=== PATIENT | female | born 1970 | race Caucasian/White ===

== ENCOUNTER 2017-07-09 14:50 | Emergency (ER) | payer BC ==
--- OUTSIDE RECORDS SUMMARY | 2017-07-09 14:57 | XMS REPORT ---
:1970 External Reference #:[id number] Author Organization [facility] Address [address] [address] Phone [phone] Care Team Providers Name Role Phone Dilma Sheets DO Primary Care Physician Unavailable Payers Type Date Identification Numbers Payment Provider Subscriber Commercial Policy Number: [id number] BS Facets Erin Lilly PayID: [id number] [address] [address] Medigap Part B Expires: 2016 Policy Number: BS Facets Erin Bauer [id number] Maxx PayID: [id number] [address] [address] Problems Description No Information Family History Date Family Member(s) Problem(s) Comments General Cancer Father Lymphoma Father Congestive Heart Failure (CHF) d/t chemo and required heart transplant Mother Depression Siblings 4 Maternal Grandfather due to SD () - In his 60's Paternal Uncles Schizophrenia Paternal Aunts Schizophrenia First Paternal Cousin due to SD () - in his 30's Social History Type Date Description Comments Marital Status Lives With Occupation Currently Working Occupation Nurse ETOH Use Occasionally consumes alcohol Smoking Patient has never smoked Recreational Drug Use Denies Drug Use Daily Caffeine Consumes on average 1 cup of regular coffee per day Exercise Type/Frequency Exercises regularly Allergies, Adverse Reactions, Alerts Date Description Reaction Status Severity Comments 04/03/2016 NKDA active Medications Medication Date Status Form Strength Qnty SIG Indications Ordering Provider Wellbutrin SR Active Tablets ER 100mg 1 tab in Unknown 000 12HR in the morning, 1 po qpm Floradix Iron Active 1 po qd Unknown Supplement 000 Melatonin Active Capsules 1mg 1 p q hs Unknown 000 prn Risperidone Active 0.25mg 1-2 Unknown 000 x/year Naproxen Hx Tablets 500mg 90tabs 1 by M46.1 Thom F 016 - mouth Santhsoh, twice a MD 017 day as needed pain Risperidone Hx Tablets 0.25mg 1 tab by Unknown 000 - mouth daily as 017 needed Falmin Hx Tab 0.1mg-mcg 1 tab by Unknown 000 - mouth daily 017 Falmina Hx Tablets 0.1-20mg-m 1 by Unknown 000 - cg mouth every 018 day B Complex Hx Capsules 1-2x/wee Unknown 000 - 018 Vital Signs Date Vital Result Comment 07/01/2017 Height 62 inches 5'2" Weight 136.75 lb Heart Rate 72 /min BP Systolic Sitting 106 mmHg BP Diastolic Sitting 66 mmHg BMI (Body Mass Index) 25.0 kg/m2 Ejection Fraction 55-60% echo 03/25/17 04/18/2017 Height 62 inches 5'2" Weight 137.00 lb w/o shoes Heart Rate 72 /min BP Systolic Sitting 100 mmHg LA reg cuff BP Diastolic Sitting 68 mmHg LA reg cuff BMI (Body Mass Index) 25.1 kg/m2 Ejection Fraction 55% - 60% echo 03/25/17 Results Test Date Test Result H/L Range Note Basic Metabolic Panel 05/23/2017 Sodium 134 mmol/L 133-145 Potassium 4.5 mmol/L 3.5-5.0 Chloride 101 mmol/L 101-111 Co2 Carbon Dioxide 26 mmol/L 22-32 Anion Gap 7 mmol/L 2-11 Glucose 84 mg/dL 70-100 Blood Urea Nitrogen 13 mg/dL 6-24 Creatinine 0.77 mg/dL 0.51-0.95 BUN/Creatinine Ratio 16.9 8-20 Calcium 9.3 mg/dL 8.6-10.3 Egfr Non- 81.4 >60 Egfr 104.7 >60 1 Laboratory test finding 05/23/2017 Magnesium 2.3 mg/dL 1.9-2.7 Vitamin D 1,25 And Vitamin 05/23/2017 Vitamin D Total 25(Oh) 24.3 ng/mL 20-50 D,2 Vitamin D, 1,25 Dihydroxy 60 pg/mL 18-78 2 1 Because ethnic data is not always readily available, this report includes an eGFR for both -Americans and non- Americans. The National Kidney Disease Education Program (NKDEP) does not endorse the use of the MDRD equation for patients that are not between the ages of 18 and 70, are , have extremes of body size, muscle mass, or nutritional status, or are non- or non-. According to the National Kidney Foundation, irrespective of diagnosis, the stage of the disease is based on the level of kidney function: Stage Description GFR(mL/min/1.73 m(2)) 1 Kidney damage with normal or decreased GFR 90 2 Kidney damage with mild decrease in GFR 60-89 3 Moderate decrease in GFR 30-59 4 Severe decrease in GFR 15-29 5 Kidney failure <15 (or dialysis) 2 ADDITIONAL INFORMATION This test was developed and its performance characteristics determined by [facility] in a manner consistent with CLIA requirements. This test has not been cleared or approved by the U.S. Food and Drug Administration. Test Performed by: [facility] - [facility] [address] [place] [address] Procedures Date CPT Code Description Status 05/27/2017 86354 Holter Monitor Review (24 hr)dr scales & vega Completed only 05/23/2017 94459 ECG Monitor/Recording W/Visual Superimposition Scanning Completed 04/25/2017 72158 ECHO Stress Test Incl Perf Contiuous ekg Monitoring Completed W/Phys Superv 04/18/2017 04895 EKG Tracing & Interpretation Completed 03/25/2017 13498 ECHO Transthoracic, Real-Time 2D With Doppler And Color Completed Flow 01/16/2017 62629 Holter Monitor Review (24 hr)dr scales & vega Completed only Encounters Type Date Location Provider CPT E/M Dx Office Visit 04/18/2017 3:00p [facility] Darius Barfield, 28244 R00.2 Leonora I49.1 I34.0 I36.1 Office Visit 04/03/2016 3:00p [facility], 52772 M46.1 Korina RENO Plan of Care 07/01/2017 - Darius Barfield M.D.R00.2 UdilxoruuijhY37.1 Atrial premature kadngkjsbadmhaN34.0 Nonrheumatic mitral (valve) insufficiencyFollow up :one yr ov
--- OUTSIDE RECORDS SUMMARY | 2017-07-09 14:57 | XMS REPORT ---
:1970 External Reference #:[id number] Author Organization [facility] Address [address] [place] [address] Phone [phone] Care Team Providers Name Role Phone [facility] Primary Care Physician Unavailable Payers Type Date Identification Numbers Payment Provider Subscriber Commercial Policy Number: [id number] Tjus BC/BS Erin Bauer [facility] [employer] PayID: [id number] [address] [address] [place] [address] Problems Description No Active Problems Family History Date Family Member(s) Problem(s) Comments Father Lymphoma Father Heart enlargement- r/t Chemo. therapy Mother A&W Number of Children 1 First Son A&W Number of Siblings Siblings: 4 First Brother A&W Second Brother A&W First Sister Colitis ulcerative Second Sister A&W Paternal Grandfather Unknown Paternal Grandmother due to Bladder Cancer () Maternal Grandfather A&W Maternal Grandmother A&W Social History Type Date Description Comments Education Highest level of education completed is 2 years of college Marital Status Patient is Living Situation Lives with spouse and son Diet Diet is healthy and well balanced Sleep Typically sleeps 8 hours a night Pets Household pets include 2 dogs Occupation RN at [employer] Cigarette Use Never smoked cigarettes Alcohol Rarely drinks alcohol approx 1xwk Smoking Patient is a former smoker Drug Use Denies drug use Daily Caffeine Drinks on average 1 cup of tea a day, coffee average 1 cup q other day, soda about one per a week. Seat Belt/Car Seat Always uses a seat belt Currently Active The patient is currently sexually active Contraceptive Methods Current methods of control used include diaphragm STD's No STD history Allergies, Adverse Reactions, Alerts Date Description Reaction Status Severity Comments 02/15/2010 NKDA active Medications Medication Date Status Form Strength Qnty SIG Indications Ordering Provider Ibuprofen Active Tablets 600mg 30tabs 1 by Uriel Shah mouth Gelber, four M.D. times a day 2days prior to period and 1st 2 days of period Wellbutrin Active Unknown 000 Iron (Ferrous Active Unknown Gluconate) 000 Cephalexin Hx Capsules 500mg 14caps take one Phaelon 014 - cap po MD Summer qid for 7 017 days Percocet Hx 5-325mg 20units 1 po q V72.83 Uriel Mooney - 6hrs as Gelber, needed M.DNeda 014 for pain Motrin Hx Tablets 600mg 30tabs take one V72.83 Uriel Mooney - tablet Gelber, q6h prn M.DNeda 017 pain Depakote /0 Hx Unknown 000 - 010 Folic Acid 0 Hx Unknown 000 - 014 Risperdal 0 Hx Unknown 000 - 013 0 Hx Unknown Complete 000 - 017 Iron 00/0 Hx Unknown 000 - 017 Percocet 00/0 Hx Unknown 000 - 014 Fenugreek 0 Hx Capsules 610mg Unknown 000 - 017 Vital Signs Date Vital Result Comment 06/20/2017 BP Systolic 100 mmHg BP Diastolic 60 mmHg Height 63 inches 5'3" Weight 136.00 lb BMI (Body Mass Index) 24.1 kg/m2 Last Menstrual Period 8380977 1 Parity 1 10/07/2013 BP Systolic 124 mmHg BP Diastolic 70 mmHg Height 63 inches 5'3" Weight 147.00 lb BMI (Body Mass Index) 26.0 kg/m2 1 Parity 1 09/25/2013 BP Systolic 110 mmHg BP Diastolic 68 mmHg Height 63 inches 5'3" Weight 146.00 lb BMI (Body Mass Index) 25.9 kg/m2 Last Menstrual Period 0281303 1 Parity 1 09/04/2013 BP Systolic 104 mmHg BP Diastolic 70 mmHg Body Temperature 98.0 F Height 63 inches 5'3" Weight 145.00 lb BMI (Body Mass Index) 25.7 kg/m2 Last Menstrual Period 3919406 1 Parity 1 08/21/2013 BP Systolic 116 mmHg BP Diastolic 70 mmHg Body Temperature 97.8 F Heart Rate 68 /min Respiratory Rate 14 /min Height 63 inches 5'3" Weight 161.00 lb BMI (Body Mass Index) 28.5 kg/m2 Last Menstrual Period 0388301 1 Parity 0 07/27/2013 BP Systolic 110 mmHg BP Diastolic 66 mmHg Height 63 inches 5'3" Weight 156.00 lb BMI (Body Mass Index) 27.6 kg/m2 Last Menstrual Period 1157354 1 Parity 0 02/28/2010 BP Systolic 110 mmHg BP Diastolic 78 mmHg Weight 132.00 lb Last Menstrual Period [id number] 0 02/15/2010 BP Systolic 100 mmHg BP Diastolic 66 mmHg Height 62.75 inches 5'2.75" Weight 129.00 lb BMI (Body Mass Index) 23.0 kg/m2 Last Menstrual Period 2016310 0 10/14/2007 BP Systolic 116 mmHg BP Diastolic 82 mmHg Height 62.75 inches 5'2.75" Weight 134.00 lb BMI (Body Mass Index) 23.9 kg/m2 Last Menstrual Period 4819871 0 Parity 0 Results Test Date Test Result H/L Range Note Wound Culture/Sensi 10/07/2013 Wound/Misc (SEE NOTE) 1 Culture-Gram Stain CBC Auto Diff 08/27/2013 White Blood Count 11.0 10^3/uL High 4.8-10.8 Red Blood Count 3.32 10^6/uL Low 4.0-5.4 Hemoglobin 11.4 g/dL Low 12.0-16.0 Hematocrit 33 % Low 35-47 Mean Corpuscular Volume 99 fL High 80-97 Mean Corpuscular Hemoglobin 34 pg High 27-31 Mean Corpuscular HGB Conc 35 g/dL 31-36 Red Cell Distribution Width 13 % 10.5-15 Platelet Count 235 10^3/uL 150-450 Mean Platelet Volume 8 um3 7.4-10.4 Abs Neutrophils 8.4 10^3/uL High 1.5-7.7 Abs Lymphocytes 1.8 10^3/uL 1.0-4.8 Abs Monocytes 0.7 10^3/uL 0-0.8 Abs Eosinophils 0.1 10^3/uL 0-0.6 Abs Basophils 0 10^3/uL 0-0.2 Abs Nucleated RBC 0 10^3/uL Granulocyte % 76.3 % 38-83 Lymphocyte % 16.2 % Low 25-47 Monocyte % 6.7 % 1-9 Eosinophil % 0.6 % 0-6 Basophil % 0.2 % 0-2 Nucleated Red Blood Cells % 0 Type And Screen 08/27/2013 Patient Blood Type O Negative Antibody Screen POSITIVE Laboratory test finding 08/27/2013 Antibody Identification D Antibody Id Autocontrol 0 Direct Antiglobulin Test NEGATIVE Laboratory test finding 02/28/2010 Prolactin 19.29 NG/ML 1.0-25.0 Laboratory test finding 02/15/2010 FSH 5.87 MIU/ML 2 Lutenizing Hormone 5.81 MIU/ML 3 Progesterone 4.4 NG/ML 4 Testosterone Total 41.8 ng/dL 10-75 Thyroid Function Edmonson 1.7 mIU/L 0.3-5.0 5 Prolactin 86.87 NG/ML High 1.0-25.0 1 RUN DATE: 10/10/13 [facility] LAB LIVE PAGE 1 RUN TIME: [address] [place] [address] Specimen Inquiry Name: SUSANA EMILYERIN : [address]: Alberto Wheeler MD Acct: [id number] Unit: [id number] AGE: 43 Location: [facility] Re10/07/13 SEX: F Status: REG REF SPEC: [id number] SANTOS: 10/07/13-[address] [facility] [address]: Alberto Wheeler MD REQ: [id number] RECD: 10/07/13 STATUS: COMP _ SOURCE: MISC SOURC SPDESC: ORDERED: Culture Stain QUERIES: Medent Number [id number] Specimen Description M RIGHT NIPPLE Procedure Result Verified Site Wound/Misc Gram Stain Final 10/08/13- 0745 ML 1+ Epithelial Cells No Polys Observed 1+ Gram Positive Cocci Wound/Misc Culture Final 10/10/13- 830 ML Organism 1 NORMAL BIRGIT Quantity 1+ END OF REPORT * ML=Testing performed at Main Lab DEPARTMENT OF PATHOLOGY, [address] [place] [address] James Kelley M.D. Director [facility] Permit #[id number] 2 NORMAL RANGE MALES 1 - 20 NORMALLY MENSTRUATING FEMALES - Follicular Phase 3 - 9 - Mid-Cycle Peak 4 - 23 - Luteal Phase 1 - 6 POSTMENOPAUSAL FEMALES 16 - 114 . 3 NORMAL RANGE MALES 2 - 12 NORMALLY MENSTRUATING FEMALES - Follicular Phase 1 - 18 - Mid-Cycle Peak 24 - 105 - Luteal Phase 0.6 - 20 POSTMENOPAUSAL FEMALES 15 - 62 . 4 FEMALE REFERENCE RANGES FOR Progesterone: Follicular phase.......0.3 - 1.5 ng/ml Mid-luteal phase.......5.2 - 18.5 ng/ml Postmenopausal.........< 0.8 ng/ml 1st trimester.........4.7 - 50.0 ng/ml 2nd trimester.........19.4 - 45.3 ng/ml . 5 Test Performed by: [facility] Pathology [address] [place] [address] [employer]: Tra Martin III, M.D. Procedures Date CPT Code Description Status 06/24/2016 Mammogram Completed 08/28/2013 39630 Delivery Only Completed 08/28/2013 28975 Delivery Only Completed 02/28/2010 20316 Echography Pelvic Limited Or Follow-Up Completed Encounters Type Date Location Provider CPT E/M Dx Office Visit 10/07/2013 10:00a [place] [address] 675.94 Office Visit 08/21/2013 9:40a [facility] Office Uriel Plascencia M.D. 64300 V72.83 Office Visit 07/27/2013 2:00p [facility] Office Uriel Plascencia M.D. 07225 621.8 Office Visit 02/28/2010 9:00a [facility] STEVEN Mccurdy 19083 628.9 Office Visit 02/15/2010 11:00a [facility] STEVEN Mccurdy 42746 628.9 Office Visit 10/14/2007 1:40p [facility] Office Luis Antonio Estrada JR., M.D. 32763 218.9 Plan of Care No Information Available
[2017-07-09 15:18] VITALS: BP 98/61
[2017-07-09] MEDS ORDERED: Rabies Immune Globulin 10 ML* 150 UNIT/ML VIAL IM ONE (15:55)
[2017-07-09] MEDS ORDERED: Rabies VIRUS VACCINE (Imovax)* 2.5 UNIT/ML 1 ML IM ONE (15:55)
--- NOTE | 2017-07-09 16:03 | UC ---
Dinesh Martin Stephanie, scribed for Lashell Nickerson MD on 07/09/17 at 1601 . Bite Injury/Animal HPI - HPI Summary HPI Summary: The pt is a 46 y/o F presenting to with bite by a feral cat on the L hand that occurred on 07/01/2017. Symptoms include a tooth puncture on the 4th digit of the L hand and a scratch on the L hand. Pt cleansed wound copiously at the time of injury. pt states wounds have scabbed and are nearly resolved. no erythema, swelling, pain fever, red streak. PT states the [facility] attempted to capture kitten - was unable and pt was recommended to come to for Rabies IG as well as vaccine. The pts vaccines are currently up to date and her last tetanus shot was in 2013. Pt is not immunocompromised. The pt denies fever, chills, and rash. Animal control was notified of the feral animal. Pt's medications reviewed at this visit - History of Current Complaint Chief Complaint: UCGeneralIllness Stated Complaint: RABIES Time Seen by Provider: 07/09/17 15:15 Hx Obtained From: Patient Hx Last Menstrual Period: 06/17/17 Pain Intensity: 0 Pain Scale Used: 0-10 Numeric Onset/Duration: Sudden Onset - s/p feral cat bite Type of Bite: Animal - feral cat Has Animal Been Immunized?: Unknown Character: Puncture, Abrasion/Laceration Aggravating Factor(s): Nothing Alleviating Factor(s): Nothing Animal Available for Observation: No Animal Control Notified: Yes - Allergies/Home Medications Allergies/Adverse Reactions: Allergies Allergy/AdvReac Type Severity Reaction Status Date / Time No Known Allergies Allergy Verified 07/09/17 15:10 PMH/Surg Hx/FS Hx/Imm Hx Previously Healthy: Yes - Surgical History Surgical History: Yes Surgery Procedure, Year, and Place: 1997 - BENIGN MASS COLLAR BONE. FIBROIDS REMOVED - URTERINE. C SECTION - Family History Known Family History: Positive: Other - lymphoma, ulcerative colitis Negative: Cardiac Disease, Hypertension, Diabetes - Social History Occupation: Employed Part-time Lives: With Family Alcohol Use: Occasionally Substance Use Type: None Smoking Status (MU): Never Smoked Tobacco - Immunization History Most Recent Influenza Vaccination: 03/2014 Most Recent Tetanus Shot: August 2013 Most Recent Pneumonia Vaccination: never Review of Systems Skin: Other - wound to index and thumb All Other Systems Reviewed And Are Negative: Yes Physical Exam Triage Information Reviewed: Yes Appearance: Well-Appearing, No Pain Distress, Well-Nourished Vital Signs: Initial Vital Signs Temp 99.8 F 07/09/17 15:11 Pulse 62 07/09/17 15:11 Resp 16 07/09/17 15:11 BP 98/61 07/09/17 15:11 Pulse Ox 100 07/09/17 15:11 Vital Signs Reviewed: Yes Eye Exam: Normal Eyes: Positive: Conjunctiva Clear ENT: Positive: Hearing grossly normal Neck exam: Normal Neck: Positive: Supple, Nontender, No Lymphadenopathy Respiratory Exam: Normal Respiratory: Positive: Chest non-tender, Lungs clear, Normal breath sounds, No respiratory distress, No accessory muscle use Cardiovascular Exam: Normal Cardiovascular: Positive: RRR, No Murmur, Pulses Normal Abdominal Exam: Normal Abdomen Description: Positive: Nontender, No Organomegaly, Soft Bowel Sounds: Positive: Present Musculoskeletal: Positive: Other: - Full AROM all digits MCP, PIP, DIP Neurological Exam: Normal Psychological Exam: Normal Skin: Positive: Other - scab wound to index dorsum and at medial margin of nailbed thumb on left no erythema, no edema, no tenderness. full ROM Bite Injury Course/Dx - Course Course Of Treatment: Pt presents for rabies IG and vaccine s/p bite from ferral cat 8 days ago. wounds are healed and very well appearing. I infiltrated IG at 2 wounds. confirmed with [facility]. tdap utd. wound well healed - no erythema, drainage, edema, fluctance. no abx. pt to f/u with [facility] on saturday. work note for mtg tonight - Differential Dx/Diagnosis Provider Diagnoses: animal bite. rabies vaccine. rabies immunoglobulin Discharge - Discharge Plan Condition: Stable Disposition: HOME Patient Education Materials: Rabies Vaccine (By injection), Rabies Immune Globulin (By injection) Forms: *Work Release Referrals: Dilma Sheets DO [Primary Care Provider] - Additional Instructions: - You have been given both immuoglobulin for rabies as well as a rabies vaccine today. you may have some discomfort a the site of these injections. It is okay to take ibuprofen (Advil, Motrin) or Tylenol for discomfort - You will need your next rabies vaccine on 07/12/2017. Contact the [facility] to arrange this vaccine - Call the health department or return with any questions or concerns Follow up with [facility] and call for an appointment for Saturday. The documentation as recorded by the Dinesh allen Stephanie accurately reflects the service I personally performed and the decisions made by me, Lashell Nickerson MD.
== END 2017-07-09 16:50 | disposition home or self-care (01) ==
LOC: UCEAST 14:50
DX: S60.471A Other superficial bite of left index finger, initial encounter (principal); S60.372A Other superficial bite of left thumb, initial encounter; W55.01XA Bitten by cat, initial encounter; Y93.9 Activity, unspecified; Y92.9 Unspecified place or not applicable; Z20.3 Contact with and (suspected) exposure to rabies; Z23 Encounter for immunization
CPT/HCPCS: 90375; 90471; 96372; 99211; G0463

== ENCOUNTER 2017-07-12 15:32 | Emergency (ER) | payer BC ==
[2017-07-12 15:36] VITALS: BP 110/55
[2017-07-12] MEDS ORDERED: Rabies Immune Globulin 2 ML* 150 UNITS/ML VIAL IM ONE (16:05)
--- NOTE | 2017-07-12 16:13 | UC ---
UC General HPI - HPI Summary HPI Summary: needs additional 1 cc of Rabies Immune Globulin - History of Current Complaint Chief Complaint: UCBiteInjury Stated Complaint: RABIES EXPOSURE Time Seen by Provider: 07/12/17 16:03 Hx Obtained From: Patient Hx Last Menstrual Period: 06/17/17 Onset/Duration: Sudden Onset - after picking up a stray kitten Timing: Constant Onset Severity: Moderate Current Severity: Moderate - Allergy/Home Medications Allergies/Adverse Reactions: Allergies Allergy/AdvReac Type Severity Reaction Status Date / Time No Known Allergies Allergy Verified 07/09/17 15:10 PMH/Surg Hx/FS Hx/Imm Hx Previously Healthy: Yes - Surgical History Surgical History: Yes Surgery Procedure, Year, and Place: 1997 - BENIGN MASS COLLAR BONE. FIBROIDS REMOVED - URTERINE. C SECTION - Family History Known Family History: Positive: Other - lymphoma, ulcerative colitis Negative: Cardiac Disease, Hypertension, Diabetes - Social History Occupation: Unemployed Lives: With Family Alcohol Use: Occasionally Substance Use Type: None Smoking Status (MU): Never Smoked Tobacco - Immunization History Most Recent Influenza Vaccination: 03/2014 Most Recent Tetanus Shot: August 2013 Most Recent Pneumonia Vaccination: never Review of Systems Constitutional: Negative Skin: Negative Eyes: Negative ENT: Negative Respiratory: Negative Cardiovascular: Negative Gastrointestinal: Negative Genitourinary: Negative Motor: Negative Neurovascular: Negative Musculoskeletal: Negative Neurological: Negative Psychological: Negative Is Patient Immunocompromised?: No All Other Systems Reviewed And Are Negative: Yes Physical Exam Triage Information Reviewed: Yes Appearance: Well-Appearing, No Pain Distress, Well-Nourished Vital Signs: Initial Vital Signs Temp 97.9 F 07/12/17 15:34 Pulse 68 07/12/17 15:34 Resp 18 07/12/17 15:34 BP 110/55 07/12/17 15:34 Pulse Ox 100 07/12/17 15:34 Vital Signs Reviewed: Yes Eye Exam: Normal Eyes: Positive: Conjunctiva Clear ENT Exam: Normal ENT: Positive: Normal ENT inspection, Hearing grossly normal. Negative: Trismus , Muffled voice, Hoarse voice, Dental tenderness Dental Exam: Normal Neck exam: Normal Neck: Positive: Supple, Nontender, No Lymphadenopathy Respiratory Exam: Normal Respiratory: Positive: Chest non-tender, No respiratory distress, No accessory muscle use Cardiovascular Exam: Normal Cardiovascular: Positive: Brisk Capillary Refill Musculoskeletal Exam: Normal Musculoskeletal: Positive: Strength Intact, ROM Intact, No Edema Neurological Exam: Normal Neurological: Positive: Alert, Muscle Tone Normal Psychological Exam: Normal Skin Exam: Normal Course/Dx - Course Course Of Treatment: finish RIG---follow with health department as planned - Differential Dx - Multi-Symptom Provider Diagnoses: bit by a stray cat - RIG Discharge - Discharge Plan Condition: Stable Disposition: HOME Patient Education Materials: Rabies Immune Globulin (By injection) Referrals: Dilma Sheets DO [Primary Care Provider] - Additional Instructions: Follow with Health Department as planned
== END 2017-07-12 16:20 | disposition home or self-care (01) ==
LOC: UCEAST 15:32
DX: T14.8XXA Other injury of unspecified body region, initial encounter (principal); Z29.14 Encounter for prophylactic rabies immune globulin; W55.01XA Bitten by cat, initial encounter; Y92.9 Unspecified place or not applicable
CPT/HCPCS: 90375; 90472; 99211; G0463

== ENCOUNTER 2017-11-01 20:38 | Emergency (ER) | payer BC ==
--- OUTSIDE RECORDS SUMMARY | 2017-11-01 21:04 | XMS REPORT ---
:1970 External Reference #:[id number] Author Organization [facility], [facility] Address [address] [place] [address] Phone [phone] Care Team Providers Name Role Phone Stacey Rodriguez M.D. Care Team Information Him Analyst Unavailable Payers Type Date Identification Numbers Payment Provider Subscriber Commercial Policy Number: [id number] Tjus BC/BS Erin Bauer [facility] Claus PayID: [id number] [address] [address] [place] [address] Problems Description No Active Problems Family History [...] Diet Diet is healthy and well balanced Occupation RN at [employer] Cigarette Use Never smoked cigarettes Alcohol Rarely drinks alcohol Smoking Patient is a former smoker Drug Use Denies drug use Daily Caffeine Drinks on average 1 cup of tea a day, coffee average 1 cup q other day, soda about one per a week. Seat Belt/Car Seat Always uses a seat belt Currently Active The patient is currently sexually active Contraceptive Methods Current methods of control used include levonorgestrel Ius STD's No STD history Allergies, Adverse Reactions, Alerts Date Description Reaction Status Severity Comments 02/15/2010 NKDA active Medications Medication Date Status Form Strength Qnty SIG Indications Ordering Provider Mirena (52 MG) Active IUD 20mcg/24HR Uriel Plascencia M.D. Ibuprofen Active Tablets 600mg 30tabs 1 by Uriel Shah mouth Gelber, four M.D. times a day 2days prior to period and 1st 2 days of period Wellbutrin Active Unknown 000 Iron (Ferrous Active Unknown Gluconate) 000 Norethindrone Hx Tablets 5mg 30tabs 1 by Uriel Serrano 018 - mouth Gelber, every M.D. 018 day Cephalexin Hx Capsules 500mg 14caps take one Phaelon 014 - cap po MD Summer qid for 017 7 days Percocet Hx 5-325mg 20unit 1 po q V72.83 Uriel A. 014 - s 6hrs as Gelber, needed M.DNeda 014 for pain Motrin Hx Tablets 600mg 30tabs take one V72.83 Uriel ANeda 014 - tablet Gelber, q6h prn M.DNeda 017 pain Depakote 0 Hx Unknown 000 - 010 Folic Acid Hx Unknown 000 - 014 Risperdal 0 Hx Unknown 000 - 013 0 Hx Unknown Complete 000 - 017 Iron 0 Hx Unknown 000 - 017 Percocet 0 Hx Unknown 000 - 014 Fenugreek Hx Capsules 610mg Unknown 000 - 017 Medications Administered in Office Medication Date Status Form Strength Qnty SIG Indications Ordering Provider PT SCRN Tbco Administered Injection Uriel A. Id as Non User 018 Leonora Plascencia PT SCRN Tbco Administered Injection Uriel RogersNeda Id as Non User 018 Leonora Plascencia Vital Signs Date Vital Result Comment 10/28/2017 BP Systolic 102 mmHg BP Diastolic 68 mmHg Height 63 inches 5'3" Weight 141.00 lb BMI (Body Mass Index) 25.0 kg/m2 Last Menstrual Period 5163874 1 Parity 1 08/30/2017 BP Systolic 120 mmHg BP Diastolic 62 mmHg Height 63 inches 5'3" Weight 134.00 lb BMI (Body Mass Index) 23.7 kg/m2 Last Menstrual Period [id number] 1 Parity 1 08/16/2017 BP Systolic 118 mmHg BP Diastolic 80 mmHg Height 63 inches 5'3" Weight 136.00 lb BMI (Body Mass Index) 24.1 kg/m2 Last Menstrual Period 6837300 1 Parity 1 06/20/2017 BP Systolic 100 mmHg BP Diastolic 60 mmHg Height 63 inches 5'3" Weight 136.00 lb BMI (Body Mass Index) 24.1 kg/m2 Last Menstrual Period 0403782 1 Parity 1 10/07/2013 BP Systolic 124 mmHg BP Diastolic 70 mmHg Height 63 inches 5'3" Weight 147.00 lb BMI (Body Mass Index) 26.0 kg/m2 1 Parity 1 09/25/2013 BP Systolic 110 mmHg BP Diastolic 68 mmHg Height 63 inches 5'3" Weight 146.00 lb BMI (Body Mass Index) 25.9 kg/m2 Last Menstrual Period 1020279 1 Parity 1 09/04/2013 BP Systolic 104 mmHg BP Diastolic 70 mmHg Body Temperature 98.0 F Height 63 inches 5'3" Weight 145.00 lb BMI (Body Mass Index) 25.7 kg/m2 Last Menstrual Period 2403985 1 Parity 1 08/21/2013 BP Systolic 116 mmHg BP Diastolic 70 mmHg Body Temperature 97.8 F Heart Rate 68 /min Respiratory Rate 14 /min Height 63 inches 5'3" Weight 161.00 lb BMI (Body Mass Index) 28.5 kg/m2 Last Menstrual Period 5699884 1 Parity 0 07/27/2013 BP Systolic 110 mmHg BP Diastolic 66 mmHg Height 63 inches 5'3" Weight 156.00 lb BMI (Body Mass Index) 27.6 kg/m2 Last Menstrual Period 3542039 1 Parity 0 02/28/2010 BP Systolic 110 mmHg BP Diastolic 78 mmHg Weight 132.00 lb Last Menstrual Period 8878706 0 02/15/2010 BP Systolic 100 mmHg BP Diastolic 66 mmHg Height 62.75 inches 5'2.75" Weight 129.00 lb BMI (Body Mass Index) 23.0 kg/m2 Last Menstrual Period 3857293 0 10/14/2007 BP Systolic 116 mmHg BP Diastolic 82 mmHg Height 62.75 inches 5'2.75" Weight 134.00 lb BMI (Body Mass Index) 23.9 kg/m2 Last Menstrual Period 6992473 0 Parity 0 Results Test Date Test Result H/L Range Note Laboratory test 08/30/2017 Surgical Pathology SEE RESULT BELOW 1 finding Wound Culture/Sensi 10/07/2013 Wound/Misc (SEE NOTE) 2 Culture-Gram Stain CBC Auto Diff 08/27/2013 White [...] Laboratory test finding 02/15/2010 FSH 5.87 MIU/ML 3 Lutenizing Hormone 5.81 MIU/ML 4 Progesterone 4.4 NG/ML 5 Testosterone Total 41.8 ng/dL 10-75 Thyroid Function [place] 1.7 mIU/L 0.3-5.0 6 Prolactin 86.87 NG/ML High 1.0-25.0 1 SEE RESULT BELOW Name: ERIN FORTE : [address]: Uriel Plascencia MD Acct: [id number] Unit: [id number] AGE: 46 Location: [facility] Re08/30/17 SEX: F Status: REG REF SPEC: [id number] SANTOS: 08/30/17-1146 [facility] DR: Uriel Plascencia MD REQ: [id number] RECD: 08/30/17-3043 STATUS: SOUT _ ORDERED: LEVEL 4 COMMENTS: [id number] FINAL DIAGNOSIS Uterus, endometrium, biopsy: -- Benign endometrial polyp (s). -- Proliferative endometrium. -- No evidence of hyperplasia or neoplasia identified. PRE-OPERATIVE DIAGNOSIS Dysfunctional uterine bleeding GROSS DESCRIPTION The specimen is received in formalin labeled, EM BX, and consists of a 2.1 x 1.7 by up to 0.5 cm aggregate of schumacher-white irregular soft tissue fragments admixed with red-brown blood clot and blood tinged mucus which is filtered and entirely submitted in one cassette. Signed (signature on file) James Kelley MD 1523 END OF REPORT DEPARTMENT OF PATHOLOGY, [facility] [employer] [place], [place] [address] James Kelley M.D. Director [facility] # [id number] 2 RUN DATE: 10/10/13 [facility] LAB LIVE PAGE 1 RUN TIME: 830 [facility] [employer] [place], [place] [address] Specimen Inquiry Name: ERIN FORTE : [address]: Alberto Wheeler MD Acct: [id number] Unit: [id number] AGE: 43 Location: [facility] Re10/07/13 SEX: F Status: REG REF SPEC: [id number] SANTOS: 10/07/13-1054 [facility] DR: Alberto Wheeler MD REQ: [id number] RECD: 10/07/13 STATUS: COMP _ SOURCE: MISC SOURC SPDESC: ORDERED: Culture Stain QUERIES: Medent Number [id number] Specimen Description M RIGHT NIPPLE Procedure Result Verified Site Wound/Misc Gram Stain Final 10/08/13- 0745 ML 1+ Epithelial Cells No Polys Observed 1+ Gram Positive Cocci Wound/Misc Culture Final 10/10/13- 0831 ML Organism 1 NORMAL BIRGIT Quantity 1+ END OF REPORT * ML=Testing performed at Main Lab DEPARTMENT OF PATHOLOGY, [address] [place] [address] James Kelley M.D. Director [facility] Permit #[id number] 3 NORMAL RANGE MALES 1 - 20 NORMALLY MENSTRUATING FEMALES - Follicular Phase 3 - 9 - Mid-Cycle Peak 4 - 23 - Luteal Phase 1 - 6 POSTMENOPAUSAL FEMALES 16 - 114 . 4 NORMAL RANGE MALES 2 - 12 NORMALLY MENSTRUATING FEMALES - Follicular Phase 1 - 18 - Mid-Cycle Peak 24 - 105 - Luteal Phase 0.6 - 20 POSTMENOPAUSAL FEMALES 15 - 62 . 5 FEMALE REFERENCE RANGES FOR Progesterone: Follicular phase.......0.3 - 1.5 ng/ml Mid-luteal phase.......5.2 - 18.5 ng/ml Postmenopausal.........< 0.8 ng/ml 1st trimester.........4.7 - 50.0 ng/ml 2nd trimester.........19.4 - 45.3 ng/ml . 6 Test Performed by: [facility] Dpt of Lab Med and Pathology [address] [place] [address] [employer]: Tra Martin III, M.D. Procedures Date CPT Code Description Status 08/30/2017 40589 Hysteroscopy,D&C Completed 08/30/2017 02707 Insert Intrauterine Device Completed 06/24/2016 Mammogram Completed 08/28/2013 96326 Delivery Only Completed 08/28/2013 96479 Delivery Only Completed 02/28/2010 40205 Echography Pelvic Limited Or Follow-Up Completed Encounters Type Date Location Provider CPT E/M Dx Office Visit 08/16/2017 9:40a [facility] Uriel Plascencia M.D. 75103 N92.0 Office Visit 06/20/2017 10:00a [facility] Uriel Plascencia M.D. 30623 N92.0 Z30.8 D50.9 Office Visit 10/07/2013 10:00a [facility] [place] [address] 675.94 Office Visit 08/21/2013 9:40a [facility] Uriel Plascencia M.D. 29915 V72.83 Office Visit 07/27/2013 2:00p [facility] Uriel Plascencia M.D. 06955 621.8 Office Visit 02/28/2010 9:00a [facility] STEVEN Mccurdy 03616 628.9 Office Visit 02/15/2010 11:00a [facility] STEVEN Mccurdy 56511 628.9 Office Visit 10/14/2007 1:40p [facility] Office Luis Antonio Estrada JR., M.D. 96455 218.9 Plan of Care No Information Available
[2017-11-01] MEDS ORDERED: NS 0.9% 1000 ML* 1,000 ML IV ONE ×2 (22:14→23:22)
[2017-11-01] MEDS ORDERED: Ketorolac INJ* 30 MG/ML 1 ML VIAL IV PUSH ONE (22:36)
[2017-11-01 22:57] LABS: ABS Basophils 0.1 10^3/ul (0-0.2); ABS Eosinophils 0.2 10^3/ul (0-0.6); ABS Lymphocytes 1.9 10^3/ul (1.0-4.8); ABS Monocytes 0.6 10^3/ul (0-0.8); ABS Neutrophils 3.8 10^3/ul (1.5-7.7); ABS Nucleated RBC 0 10^3/ul; Eosinophil % 3.3 % (0-6); Hematocrit 26 % (35-47); Hemoglobin 8.5 g/dl (12.0-16.0); Lymphocyte % 28.7 % (25-47); Mean Corpuscular HGB Conc 33 g/dl (31-36); Mean Corpuscular Hemoglobin 28 pg (27-31); Mean Corpuscular Volume 83 fL (80-97); Mean Platelet Volume 7.5 um3 (7.4-10.4); Nucleated Red Blood Cells % 0; Platelet Count 281 10^3/ul (150-450); Red Cell Distribution Width 14 % (10.5-15); White Blood Count 6.6 10^3/ul (3.5-10.8)
[2017-11-01 23:05] LABS: INR 0.94 (0.77-1.02)
[2017-11-01 23:15] LABS: EGFR Non-African American 82.3 (>60)
[2017-11-01 23:16] LABS: Urine Appearance Clear; Urine Blood Negative (Negative); Urine Color Straw; Urine Ketones Negative (Negative); Urine Protein Negative (Negative); Urine Urobilinogen Negative (Negative)
--- NOTE | 2017-11-01 23:17 | ED ---
GI/ HPI - HPI Summary HPI Summary: 47 Female presents with diffuse abdominal pain for the past couple days. She states she gets this whenever she has her period. She states she has history of anemia. She is following the next couple weeks. She has been taking iron. She states she feels very dizzy. She has had a normal appetite. she recently had a mirena place in the past couple months. She states that ibuprofen helps but did not take any ibuprofen today. she states that she feels weak. She states the pain comes and goes in waves. She has a history of fibroids. She denies any diarrhea constipation. - History of Current Complaint Chief Complaint: EDGeneral Time Seen by Provider: 11/01/17 21:59 Stated Complaint: DIZZINESS/ABD PAIN Hx Last Menstrual Period: 06/17/17 Pain Intensity: 5 - Allergy/Home Medications Allergies/Adverse Reactions: Allergies Allergy/AdvReac Type Severity Reaction Status Date / Time No Known Allergies Allergy Verified 11/01/17 20:48 PMH/Surg Hx/FS Hx/Imm Hx Endocrine/Hematology History: Denies: Hx Diabetes Cardiovascular History: Denies: Hx Hypertension, Hx Pacemaker/ICD History: Denies: Hx Renal Disease Sensory History: Denies: Hx Hearing Aid Psychiatric History: Reports: Hx Depression Denies: Hx Panic Disorder - Surgical History Surgery Procedure, Year, and Place: 1997 - BENIGN MASS COLLAR BONE. FIBROIDS REMOVED - URTERINE. C SECTION Infectious Disease History: No Infectious Disease History: Denies: Traveled Outside the [place] in Last 30 Days - Family History Known Family History: Positive: Other - lymphoma, ulcerative colitis Negative: Cardiac Disease, Hypertension, Diabetes - Social History Alcohol Use: Occasionally Substance Use Type: Reports: None Smoking Status (MU): Never Smoked Tobacco Review of Systems Positive: Fatigue. Negative: Fever Negative: Chest Pain Negative: Shortness Of Breath Positive: Abdominal Pain. Negative: Vomiting, Diarrhea, Nausea All Other Systems Reviewed And Are Negative: Yes Physical Exam Triage Information Reviewed: Yes Vital Signs On Initial Exam: Initial Vitals Temp Pulse Resp BP Pulse Ox 99.5 F 75 16 119/70 99 11/01/17 20:40 11/01/17 20:40 11/01/17 20:40 11/01/17 20:40 11/01/17 20:40 Vital Signs Reviewed: Yes Appearance: Positive: Well-Appearing Skin: Positive: Warm, Dry Head/Face: Positive: Normal Head/Face Inspection Eyes: Positive: Normal, Conjunctiva Clear ENT: Positive: Pharynx normal Respiratory/Lung Sounds: Positive: Clear to Auscultation, Breath Sounds Present Cardiovascular: Positive: Normal, RRR Abdomen Description: Positive: Soft, Other: - mild diffuse abdominal tenderness Bowel Sounds: Positive: Present Musculoskeletal: Positive: Normal Neurological: Positive: Normal Psychiatric: Positive: Normal Diagnostics - Vital Signs Vital Signs Temp Pulse Resp BP Pulse Ox 11/01/17 20:40 99.5 F 75 16 119/70 99 - Laboratory Lab Results: Lab Results 11/01/17 11/01/17 11/01/17 Range/Units 22:38 22:38 22:38 WBC 6.6 (3.5-10.8) 10^3/ul RBC 3.10 L (4.0-5.4) 10^6/ul Hgb 8.5 L (12.0-16.0) g/dl Hct 26 L (35-47) % MCV 83 (80-97) fL MCH 28 (27-31) pg MCHC 33 (31-36) g/dl RDW 14 (10.5-15) % Plt Count 281 (150-450) 10^3/ul MPV 7.5 (7.4-10.4) um3 Neut % (Auto) 57.6 (38-83) % Lymph % (Auto) 28.7 (25-47) % Fisher % (Auto) 9.4 H (0-7) % Eos % (Auto) 3.3 (0-6) % Baso % (Auto) 1.0 (0-2) % Absolute Neuts (auto) 3.8 (1.5-7.7) 10^3/ul Absolute Lymphs (auto) 1.9 (1.0-4.8) 10^3/ul Absolute Monos (auto) 0.6 (0-0.8) 10^3/ul Absolute Eos (auto) 0.2 (0-0.6) 10^3/ul Absolute Basos (auto) 0.1 (0-0.2) 10^3/ul Absolute Nucleated RBC 0 10^3/ul Nucleated RBC % 0 INR (Anticoag Therapy) 0.94 (0.77-1.02) APTT 38.1 H (26.0-36.3) seconds Sodium 140 (139-145) mmol/L Potassium 3.8 (3.5-5.0) mmol/L Chloride 109 (101-111) mmol/L Carbon Dioxide 25 (22-32) mmol/L Anion Gap 6 (2-11) mmol/L BUN 13 (6-24) mg/dL Creatinine 0.76 (0.51-0.95) mg/dL Est GFR ( Amer) 105.8 (>60) Est GFR (Non-Af Amer) 82.3 (>60) BUN/Creatinine Ratio 17.1 (8-20) Glucose 108 H (70-100) mg/dL Calcium 9.0 (8.6-10.3) mg/dL Total Bilirubin 0.20 (0.2-1.0) mg/dL AST 16 (13-39) U/L ALT 11 (7-52) U/L Alkaline Phosphatase 35 (34-104) U/L C-Reactive Protein < 1.00 (< 5.00) mg/L Total Protein 6.5 (6.4-8.9) g/dL Albumin 4.1 (3.2-5.2) g/dL Globulin 2.4 (2-4) g/dL Albumin/Globulin Ratio 1.7 (1-3) Lipase 15 (11.0-82.0) U/L Beta HCG, Quant Pending Urine Color Urine Appearance Urine pH (5-9) Ur Specific [place] (1.010-1.030) Urine Protein (Negative) Urine Ketones (Negative) Urine Blood (Negative) Urine Nitrate (Negative) Urine Bilirubin (Negative) Urine Urobilinogen (Negative) Ur Leukocyte Esterase (Negative) Urine Glucose (Negative) 11/01/17 Range/Units 22:46 WBC (3.5-10.8) 10^3/ul RBC (4.0-5.4) 10^6/ul Hgb (12.0-16.0) g/dl Hct (35-47) % MCV (80-97) fL MCH (27-31) pg MCHC (31-36) g/dl RDW (10.5-15) % Plt Count (150-450) 10^3/ul MPV (7.4-10.4) um3 Neut % (Auto) (38-83) % Lymph % (Auto) (25-47) % Fisher % (Auto) (0-7) % Eos % (Auto) (0-6) % Baso % (Auto) (0-2) % Absolute Neuts (auto) (1.5-7.7) 10^3/ul Absolute Lymphs (auto) (1.0-4.8) 10^3/ul Absolute Monos (auto) (0-0.8) 10^3/ul Absolute Eos (auto) (0-0.6) 10^3/ul Absolute Basos (auto) (0-0.2) 10^3/ul Absolute Nucleated RBC 10^3/ul Nucleated RBC % INR (Anticoag Therapy) (0.77-1.02) APTT (26.0-36.3) seconds Sodium (139-145) mmol/L Potassium (3.5-5.0) mmol/L Chloride (101-111) mmol/L Carbon Dioxide (22-32) mmol/L Anion Gap (2-11) mmol/L BUN (6-24) mg/dL Creatinine (0.51-0.95) mg/dL Est GFR ( Amer) (>60) Est GFR (Non-Af Amer) (>60) BUN/Creatinine Ratio (8-20) Glucose (70-100) mg/dL Calcium (8.6-10.3) mg/dL Total Bilirubin (0.2-1.0) mg/dL AST (13-39) U/L ALT (7-52) U/L Alkaline Phosphatase (34-104) U/L C-Reactive Protein (< 5.00) mg/L Total Protein (6.4-8.9) g/dL Albumin (3.2-5.2) g/dL Globulin (2-4) g/dL Albumin/Globulin Ratio (1-3) Lipase (11.0-82.0) U/L Beta HCG, Quant Urine Color Straw Urine Appearance Clear Urine pH 7.0 (5-9) Ur Specific [place] 1.010 (1.010-1.030) Urine Protein Negative (Negative) Urine Ketones Negative (Negative) Urine Blood Negative (Negative) Urine Nitrate Negative (Negative) Urine Bilirubin Negative (Negative) Urine Urobilinogen Negative (Negative) Ur Leukocyte Esterase Negative (Negative) Urine Glucose Negative (Negative) Result Diagrams: 11/01/17 22:38 11/01/17 22:38 Lab Statement: Any lab studies that have been ordered have been reviewed, and results considered in the medical decision making process. - Ultrasound No standard instances Ultrasound Interpretation: Positive (See Comments) - Right ovarian cyst, fibroid uterus Ultrasound Interpretation Completed By: Radiologist Re-Evaluation - Re-Evaluation First Eval Re-Evaluation Time: 23:59 Change: Improved Comment: feeling better after toradol GIGU Course/Dx - Course Course Of Treatment: 47 Female presents with diffuse abdominal pain for the past couple days. She states she gets this whenever she has her period. She states she has history of anemia. She is following the next couple weeks. She has been taking iron. She states she feels very dizzy. She has had a normal appetite. she recently had a mirena place in the past couple months. She states that ibuprofen helps but did not take any ibuprofen today. she states that she feels weak. She states the pain comes and goes in waves. She has a history of fibroids. She denies any diarrhea constipation. On exam has mild diffuse abdominal tenderness. white blood cell count normal. Hemoglobin is 8.5 which is below but lower than normal. crp normal. ultrasound shows ovarian cysts. which would explained right sided abdominal pain. Told continue taking ibuprofen. Told to follow-up with [facility] DIRECTOR. Patient understands agrees with plan. - Diagnoses Differential Diagnoses - Female: Endometriosis, Gastroenteritis (Viral), Ovarian Cyst Provider Diagnoses: Anemia, Abdominal pain, Ovarian cyst Discharge - Sign-Out/Discharge Documenting (check all that apply): Discharge/Admit/Transfer - Discharge Plan Condition: Good Disposition: HOME Patient Education Materials: Ovarian Cyst (ED) Referrals: Dilma Sheets DO [Primary Care Provider] - Additional Instructions: Follow up with assembly machine tender Take tyenlol and ibuprofen every 6 hours Drink plenty of fluids take iron twice a day Return to ED if develop any new or worsening symptoms - Billing Disposition and Condition Condition: GOOD Disposition: HOME
[2017-11-02 00:41] VITALS: BP 108/64
--- NOTE | 2017-11-02 08:12 | RAD ---
Indication: Pelvic pain. Real-time sonography of the pelvis was performed. The uterus measures 11.6 x 6.5 x 8.0 cm. This likely a large submucosal fibroid present measuring 4.8 x 4.2 x 3.5 cm. The endometrial stripe likely is displaced towards the right measuring approximately 11 mm. Right ovary measures 4.0 x 2.6 x 4.8 cm with a cyst in the right ovary measuring 2.8 x 2.9 x 1.9 cm. The left ovary measures 3.7 x 2.1 x 3.5 cm. No evidence of free fluid is noted. Doppler interrogation demonstrates flow in both ovaries. IMPRESSION: ENDOMETRIAL FIBROID WITH DISPLACEMENT OF THE ENDOMETRIAL ECHOES. SUBMUCOSAL FIBROID MEASURES 4.8 X 4.2 X 3.5 CM. RIGHT OVARIAN CYST MEASURING UP TO 2.9 CM.
== END 2017-11-02 00:42 | disposition home or self-care (01) ==
LOC: ED 20:38
DX: N83.209 Unspecified ovarian cyst, unspecified side (principal); D64.9 Anemia, unspecified; R10.9 Unspecified abdominal pain; R53.83 Other fatigue
CPT/HCPCS: 36415; 76856; 80053; 81003; 83690; 84702; 85025; 85610; 85730; 86140; 96374; 99283; J1885

== ENCOUNTER 2017-11-27 10:41 | Day surgery (SDC) | payer BC ==
[~2017-11-27 10:41] MED LIST: Buffered Lidocaine 0.9% SYRIN* 5 ML/SYR SYRINGE INTRADERM ONE
[2017-11-27] MEDS ORDERED: fentaNYL* 50 MCG/ML 2 ML VIAL (100 MCG VIAL) ONE (10:45)
[2017-11-27] MEDS ORDERED: Midazolam* 1 MG/ML 2 ML VIAL (2 MG) ONE (10:45)
[2017-11-27] MEDS ORDERED: Famotidine IV* 10 MG/ML 2 ML (20 mg) ONE (11:38)
[2017-11-27] MEDS ORDERED: Dexamethasone IV* 4 MG/ML 1 ML (4 MG) ONE (12:16)
[2017-11-27] MEDS ORDERED: Propofol* 10 MG/ML 20 ML BTL IV PUSH ONE (12:16)
[2017-11-27] MEDS ORDERED: Ondansetron ODT TAB* 4 MG ONE ×2 (12:16→15:18)
[2017-11-27] MEDS ORDERED: Naloxone* 0.4 MG/ML 1 ML VIAL IV PRN (13:43)
[2017-11-27] MEDS ORDERED: HYDROcodone/ACETAMIN 5-325 MG* 1 TAB PO PRN (13:43)
[2017-11-27] MEDS ORDERED: fentaNYL* 50 MCG/ML 2 ML VIAL (100 MCG VIAL) IV PRN (13:43)
[2017-11-27] MEDS ORDERED: Ondansetron ODT TAB* 4 MG PO PRN (13:43)
[2017-11-27] MEDS ORDERED: diPHENhydraMINE IV* 50 MG/ML 1 ml VIAL (BENADRYL) IV PRN (13:43)
[2017-11-27] MEDS ORDERED: Nalbuphine* 20 MG/ML 1 ML VIAL IV PRN (13:43)
[2017-11-27] MEDS ORDERED: Acetaminophen TAB* 325 MG PO PRN (13:43)
[2017-11-27] MEDS ORDERED: Ketorolac INJ* 30 MG/ML 1 ML VIAL ONE (14:28)
[2017-11-27 15:02] VITALS: BP 102/67
[2017-11-27] MEDS ORDERED: oxyCODONE/Acetamin 5/325 MG* TAB ONE (15:03)
--- NOTE | 2017-11-28 10:16 | OP ---
DATE OF OPERATION: 11/27/17 - [facility] DATE OF : 74 SURGEON: Uriel Plascencia MD ANESTHESIA: General, endotracheal tube. PRE-OP DIAGNOSIS: Menorrhagia. POST-OP DIAGNOSES: Menorrhagia and submucous fibroid. OPERATIVE PROCEDURE: D and C, hysteroscopy, possible ablation. COMPLICATIONS: None. FINDINGS: On exam under anesthesia, the uterus was mid position. Cervix, vagina, and vulva appeared normal. On sounding, the uterus sounded to 13 cm. On hysteroscopy, the whole cavity could not be well visualized. There was a large rounded tissue mass in the uterine cavity that blocked the ability to see the tubal ostia and looked to be approximately 5 cm in size, correlating with a fibroid seen on the ultrasound. DESCRIPTION OF PROCEDURE: The patient identified, procedure identified as a D and C hysteroscopy. The patient was taken to the operating room and prepped and draped in the usual fashion in dorsal lithotomy position under general anesthesia. Two single-tooth tenaculums were placed on the anterior lip of the cervix. Cervix was sounded 13 cm, hysteroscope was inserted and the above findings were noted. Hysteroscope was removed and a sharp curette was inserted and sharp curettage performed until a gritty sensation was felt throughout the circumference. Because there was a large fibroid, the decision was made not to proceed with an endometrial ablation. All sponge and instrument counts were correct and the patient returned to the recovery room in stable condition. [id number] #: [id number] MTDD
== END 2017-11-27 15:25 | disposition home or self-care (01) ==
LOC: OR 10:41
PROVIDERS: ATTEND Obstetrics & Gynecology
DX: N92.1 Excessive and frequent menstruation with irregular cycle (principal); D25.0 Submucous leiomyoma of uterus; Z87.891 Personal history of nicotine dependence; R00.2 Palpitations; R00.0 Tachycardia, unspecified; I34.0 Nonrheumatic mitral (valve) insufficiency; D50.9 Iron deficiency anemia, unspecified; F31.9 Bipolar disorder, unspecified; F41.9 Anxiety disorder, unspecified
CPT/HCPCS: 88305; A9270-GY; J1100; J1885; J2250; J2704; J3010